=== PATIENT | female | born 1985 | race Caucasian/White ===

== ENCOUNTER → 2020-01-27 14:40 | Outpatient (BNVA) | payer OTHER, SELFPAY | PROVIDERS: Family Provider Nurse Practitioner Family; Visit Provider Obstetrics & Gynecology | DX: Z12.4 Encounter for screening for malignant neoplasm of cervix (principal); Z80.3 Family history of malignant neoplasm of breast | CPT/HCPCS: 88175 ==

== ENCOUNTER 2020-05-28 14:37 | Outpatient (CLI) | payer OTHER, SELFPAY ==
--- NOTE | 2020-05-28 15:00 | MM_ITS ---
WS: [id number] BILATERAL SCREENING DIGITAL MAMMOGRAM WITH CAD HISTORY: Family history of breast cancer COMPARISON: 05/23/2019 and 02/17/2018 Bilateral CC and MLO views submitted. Computer aided detection analyzed. Breast composition: The breasts are extremely dense, which lowers the sensitivity of mammography. No suspicious masses, microcalcifications or architectural distortion. MM/[id number] IMPRESSION: BI-RADS: 1-Negative FOLLOW UP: 1 Year Follow-up
== END 2020-05-28 14:38 | disposition home or self-care (01) ==
LOC: RADSHAW 14:41
PROVIDERS: PCP Nurse Practitioner Family; Visit Provider Obstetrics & Gynecology
DX: Z80.3 Family history of malignant neoplasm of breast (principal)
CPT/HCPCS: 77067